=== PATIENT | female | born 1970 | race Asian ===

== ENCOUNTER 2016-10-22 21:51 | Emergency (ER) | payer OTHER ==
[2016-10-22 22:18] LABS: BASOPHILS # (AUTO) 0.1 10^3/uL (0.0-0.1); BASOPHILS % (AUTO) 1.1 %; EOSINOPHILS # (AUTO) 0.3 10^3/uL (0.0-0.7); EOSINOPHILS % (AUTO) 2.3 %; HCT - HEMATOCRIT 34.9 % (37.0-47.0); MEAN CORPUSCULAR HEMOGLOBIN 23.7 pg (27.0-31.0); MEAN CORPUSCULAR HGB CONC 31.5 g/dL (32.0-36.0); MEAN PLATELET VOLUME 7.3 fL (7.9-10.8); MONOCYTES # (AUTO) 1.1 10^3/uL (0.0-1.0); MONOCYTES % (AUTO) 8.4 %; NEUTROPHILS # (AUTO) 8.1 10^3/uL (1.5-6.6); NEUTROPHILS % (AUTO) 64.2 %; RED BLOOD COUNT 4.65 10^6/uL (4.20-5.40); RED CELL DISTRIBUTION WIDTH 17.5 % (12.0-15.0); UNCORRECTED WHITE BLOOD COUNT 12.5 x10^3/uL; WHITE BLOOD COUNT 12.5 x10^3/uL (4.8-10.8)
[2016-10-22 22:28] LABS: ALBUMIN/GLOBULIN RATIO 1.2 (1.0-2.2); BILIRUBIN,TOTAL 0.4 mg/dL (0.2-1.0); CALCIUM 9.5 mg/dL (8.5-10.3); CREATININE 0.6 mg/dL (0.4-1.0); POTASSIUM 3.1 mmol/L (3.5-5.0)
--- NOTE | 2016-10-22 22:44 | XRAY Preliminary Report ---
Exam: XR Chest 1 View IMPRESSION: Normal single view chest. [facility] SITE ID: [id number]
--- NOTE | 2016-10-22 22:46 | XRAY Report ---
EXAM: CHEST RADIOGRAPHY EXAM DATE: 10/22/2016 10:22 PM. CLINICAL HISTORY: Chest pain. COMPARISON: 07/27/2015. TECHNIQUE: 1 view. FINDINGS: Lungs/Pleura: No focal opacities evident. No pleural effusion. No pneumothorax. Mediastinum: Within exam limitations, cardiomediastinal contour is normal. Other: None. IMPRESSION: Normal single view chest. [facility] Referring Provider Line: [phone] SITE ID: [id number]
[2016-10-22 23:28] LABS: INR 0.9 (0.8-1.2); PT - PROTHROMBIN TIME 10.6 secs (9.9-12.6)
[2016-10-23] MEDS ORDERED: POTASSIUM CHLORIDE 20 MEQ/15 ML UDC PO STA (00:42)
--- NOTE | 2016-10-23 00:45 | ED Physician Documentation ---
PD HPI CHEST PAIN - Stated complaint Stated Complaint: CHEST PX - Chief complaint Chief Complaint: Cardiac - History obtained from History obtained from: Patient - History of Present Illness Timing - onset: Today Timing - onset during: Rest Timing - details: Abrupt onset, Still present Quality: Pressure Location: Left chest Improved by: Nothing Worsened by: No: Exertion, Inspiration, Eating, Palpation, Position Associated symptoms: No: Shortness of air, Diaphoresis, Nausea, Vomiting, Feeling faint / dizzy, General Weakness, Palpitations Similar symptoms before: Has not had sx before Recently seen: Not recently seen - Additional information Additional information: Patient is a 46 year old female presenting to the emergency department for chest pain. Patient states that tonight she was sitting on her bed when she developed left sided chest pressure. Patient denied any other associated symptoms and denied any aggrevating or alleviating factors. Review of Systems Constitutional: denies: Fever, Chills Eyes: denies: Loss of vision, Decreased vision Ears: denies: Ear pain Nose: denies: Rhinorrhea / runny nose, Congestion, Epistaxis Throat: denies: Dental pain / toothache, Oral lesions / sores Cardiac: reports: Chest pain / pressure. denies: Palpitations, Calf pain Respiratory: reports: Cough. denies: Dyspnea, Wheezing GI: denies: Abdominal Pain, Nausea, Vomiting Skin: denies: Rash, Lesions Musculoskeletal: denies: Neck pain, Back pain, Extremity pain, Joint pain Neurologic: denies: Generalized weakness, Focal weakness, Numbness Psychiatric: denies: Depressed, Suicidal Immunocompromised: denies: Immunocompromised PD PAST MEDICAL HISTORY - Past Medical History Past Medical History: Yes Cardiovascular: Hypertension Respiratory: None Neuro: None Endocrine/Autoimmune: None GI: None HEENT: None Derm: None - Past Surgical History Past Surgical History: No - Present Medications Home Medications: Ambulatory Orders Medication Instructions Recorded Confirmed Aspirin Chewable [[place] 81 mg PO DAILY 09/28/13 10/22/16 Aspirin] Diltiazem HCl [Diltiazem ER] 360 mg PO DAILY 09/28/13 10/22/16 Lisinopril/Hydrochlorothiazide 1 each PO DAILY 09/28/13 10/22/16 [Lisinopril-Hctz 20-25 mg Tab] Ibuprofen [Motrin] 800 mg PO Q8H PRN #30 tablet 12/01/14 10/22/16 - Allergies Allergies/Adverse Reactions: Allergies Allergy/AdvReac Type Severity Reaction Status Date / Time No Known Drug Allergies Allergy Verified 10/22/16 21:57 - Social History Does the pt smoke?: Yes Smoking Status: Current every day smoker Does the pt drink ETOH?: No Does the pt have substance abuse?: No - Immunizations Immunizations are current?: No Immunizations: TDAP >10years/unknown - POLST Patient has POLST: No PD ED PE NORMAL - Vitals Vital signs reviewed: Yes - General General: Alert and oriented X 3, No acute distress, Well developed/nourished - HEENT HEENT: Atraumatic, PERRL, Pharynx benign - Neck Neck: Supple, no meningeal sign, No JVD - Cardiac Cardiac: No murmur, No rub - Respiratory Respiratory: No respiratory distress, Clear bilaterally - Abdomen Abdomen: Soft, Non tender, Non distended - Derm Derm: Normal color, Warm and dry, No rash - Extremities Extremities: No deformity, No tenderness to palpate, No edema, No calf tenderness / cord - Neuro Neuro: Alert and oriented X 3, 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, No motor deficit, No sensory deficit, Normal speech - Psych Psych: Normal mood, Normal affect PD ED PE EXPANDED - Cardiac Cardiac: Tachy Results - Vitals Vitals: Vital Signs - 24 hr 10/22/16 10/22/16 10/22/16 21:55 22:08 23:20 Temperature 36 C L Heart Rate 114 H 104 H 110 H Respiratory 17 17 99 H Rate Blood Pressure 166/75 H 139/83 H 144/94 H O2 Saturation 98 100 10/23/16 00:07 Temperature Heart Rate 99 Respiratory 17 Rate Blood Pressure 122/82 H O2 Saturation 99 Oxygen O2 Source Room air - EKG (time done) 2158 Rate: Rate (enter#) (104) Rhythm: Sinus tachycardia [place]: Normal Intervals: Normal [place] Compare to prior EKG: Unchanged from prior EKG - Labs Labs: Laboratory Tests 10/22/16 10/22/16 10/22/16 22:00 22:00 22:00 WBC 12.5 H RBC 4.65 Hgb 11.0 L Hct 34.9 L MCV 75.0 L MCH 23.7 L MCHC 31.5 L RDW 17.5 H Plt Count 359 MPV 7.3 L Neut # 8.1 H Lymph # 3.0 Kem[place] # 1.1 H Eos # 0.3 Baso # 0.1 Absolute Nucleated RBC 0.00 Nucleated RBCs 0.0 PT INR APTT D-Dimer Sodium 139 Potassium 3.1 L Chloride 102 Carbon Dioxide 28 Anion Gap 9.0 BUN 11 Creatinine 0.6 Estimated GFR (MDRD) 107 Glucose 117 H Calcium 9.5 Total Bilirubin 0.4 AST 28 ALT 18 Alkaline Phosphatase 56 Troponin I < 0.04 B-Natriuretic Peptide Total Protein 8.0 Albumin 4.3 Globulin 3.7 Albumin/Globulin Ratio 1.2 Lipase 37 10/22/16 10/22/16 10/22/16 22:00 22:00 22:32 WBC RBC Hgb Hct MCV MCH MCHC RDW Plt Count MPV Neut # Lymph # [place] # Eos # Baso # Absolute Nucleated RBC Nucleated RBCs PT 10.6 INR 0.9 APTT 30.0 D-Dimer < 200.0 L Sodium Potassium Chloride Carbon Dioxide Anion Gap BUN Creatinine Estimated GFR (MDRD) Glucose Calcium Total Bilirubin AST ALT Alkaline Phosphatase Troponin I B-Natriuretic Peptide 15 Total Protein Albumin Globulin Albumin/Globulin Ratio Lipase 10/23/16 00:18 WBC RBC Hgb Hct MCV MCH MCHC RDW Plt Count MPV Neut # Lymph # Kem[place] # Eos # Baso # Absolute Nucleated RBC Nucleated RBCs PT INR APTT D-Dimer Sodium Potassium Chloride Carbon Dioxide Anion Gap BUN Creatinine Estimated GFR (MDRD) Glucose Calcium Total Bilirubin AST ALT Alkaline Phosphatase Troponin I < 0.04 B-Natriuretic Peptide Total Protein Albumin Globulin Albumin/Globulin Ratio Lipase - Rads (name of study) chest x-ray Radiology: Final report received (no acute abnormality) PD MEDICAL DECISION MAKING - ED course Complexity details: reviewed old records, reviewed results, re-evaluated patient , considered differential, d/w patient ED course: Patient was seen and examined at bedside. Patient was tachycardic but otherwise vital signs were within normal limits. Patient was comfortable and in no acute distress. ekg was performed, iv access was gained and labs were drawn. Patient's ekg showed no change when compared to last year. chest x-ray was within normal limits. labs including dimer and troponin were negative. Patient was observed for 3 hours and another troponin was ordered and remained negative. Patient's HEART score was low risk. Patient required no further work up and patient was stable for discharge with close outpatient follow up. Departure - Departure Disposition: 01 Home, Self Care Clinical Impression: Atypical chest pain Condition: Good Instructions: ED Chest Pain Atypical Unkn Cause Follow-Up: primary,care provider [Other] - Within 3 Days Comments: Your diagnostics today were within normal limits. There was no abnormalities. Although this means that your pain being cardiac in nature is unlikely, it is only a snapshot in time. It is important that you follow up with your pmd for re-evaluation and a possible stress test and echocardiogram. You should increase the amount of potassium you eat since you are on the diuretic. You may return to the emergency department at any time for chest pain, shortness of breath, new worsening or uncontrollable symptoms.
[2016-10-23 00:53] VITALS: BP 139/87
[2016-10-23] MEDS ORDERED: POTASSIUM CHLORIDE 20 MEQ TABLET PO ONE (00:53)
[2016-10-23] MEDS ORDERED: POTASSIUM CHLORIDE 20 MEQ TABLET PO STA (01:17)
== END 2016-10-23 01:05 | disposition home or self-care (01) ==
LOC: ED 21:51
DX: R07.89 Other chest pain (principal); R00.0 Tachycardia, unspecified; I10 Essential (primary) hypertension; F17.200 Nicotine dependence, unspecified, uncomplicated; Z79.82 Long term (current) use of aspirin
CPT/HCPCS: 36415; 71010; 80053; 83690; 83880; 84484; 85025; 85379; 85610; 85730; 93005; 93010; 99284; A9270

== ENCOUNTER 2016-12-19 11:54 | Emergency (ER) | payer OTHER | END 2016-12-19 12:01 | disposition left against medical advice (07) | LOC: ED 11:54 | DX: Z53.21 Procedure and treatment not carried out due to patient leaving prior to being seen by health care provider (principal) ==

== ENCOUNTER 2017-03-09 19:26 | Emergency (ER) | payer OTHER ==
[2017-03-09 20:17] LABS: BASOPHILS # (AUTO) 0.1 10^3/uL (0.0-0.1); BASOPHILS % (AUTO) 0.9 %; EOSINOPHILS # (AUTO) 0.2 10^3/uL (0.0-0.7); EOSINOPHILS % (AUTO) 2.3 %; HCT - HEMATOCRIT 31.5 % (37.0-47.0); HGB - HEMOGLOBIN 9.7 g/dL (12.0-16.0); LYMPHOCYTES # (AUTO) 3.1 10^3/uL (1.5-3.5); LYMPHOCYTES % (AUTO) 29.9 %; MEAN CORPUSCULAR HEMOGLOBIN 20.9 pg (27.0-31.0); MEAN CORPUSCULAR HGB CONC 30.6 g/dL (32.0-36.0); MEAN CORPUSCULAR VOLUME 68.3 fL (81.0-99.0); MEAN PLATELET VOLUME 6.3 fL (7.9-10.8); MONOCYTES # (AUTO) 0.8 10^3/uL (0.0-1.0); MONOCYTES % (AUTO) 8.1 %; NEUTROPHILS % (AUTO) 58.8 %; RED BLOOD COUNT 4.62 10^6/uL (4.20-5.40); RED CELL DISTRIBUTION WIDTH 16.5 % (12.0-15.0); UNCORRECTED WHITE BLOOD COUNT 10.2 x10^3/uL; WHITE BLOOD COUNT 10.2 x10^3/uL (4.8-10.8)
[2017-03-09 20:21] LABS: PT - PROTHROMBIN TIME 10.9 secs (9.9-12.6)
[2017-03-09] MEDS ORDERED: KETOROLAC 60 MG/2 ML VIAL IVP STA (20:23)
[2017-03-09 20:27] LABS: ALBUMIN/GLOBULIN RATIO 1.2 (1.0-2.2); BILIRUBIN,TOTAL 0.8 mg/dL (0.2-1.0); CALCIUM 9.3 mg/dL (8.5-10.3); CREATININE 0.6 mg/dL (0.4-1.0)
[2017-03-09 20:28] LABS: PARTIAL THROMBOPLASTIN TIME 30.1 secs (24.9-33.3)
[2017-03-09] MEDS ORDERED: SODIUM CHLORIDE FLUSH 0.9% 10 ML SYRINGE IVP ONE (20:45)
[2017-03-09] MEDS ORDERED: KETOROLAC 30 MG/ML VIAL ONE (20:45)
--- NOTE | 2017-03-09 21:00 | XRAY Preliminary Report ---
Exam: XR Chest 1 View IMPRESSION: Normal single view chest. [facility] SITE ID: [id number]
--- NOTE | 2017-03-09 21:03 | XRAY Report ---
EXAM: CHEST RADIOGRAPHY EXAM DATE: 03/09/2017 08:38 PM. CLINICAL HISTORY: Chest pain. COMPARISON: 10/22/2016. TECHNIQUE: 1 view. FINDINGS: Lungs/Pleura: No focal opacities evident. No pleural effusion. No pneumothorax. Mediastinum: Within exam limitations, cardiomediastinal contour is normal. Other: No bony abnormality identified. IMPRESSION: Normal single view chest. [facility] Referring Provider Line: [phone] SITE ID: [id number]
[2017-03-09] MEDS ORDERED: POTASSIUM BICARB 25 MEQ TABLET PO STA (21:18)
--- NOTE | 2017-03-09 21:18 | ED Physician Documentation ---
PD HPI CHEST PAIN - Stated complaint Stated Complaint: CHEST PAIN - Chief complaint Chief Complaint: Cardiac - History obtained from History obtained from: Patient - History of Present Illness Timing - onset: Yesterday Timing - onset during: Rest Timing - duration: Days (2) Timing - details: Gradual onset, Waxing and waning Pain level max: 7 Pain level now: 7 Quality: Pressure, Sharp Location: Left chest Radiation: Other (L shoulder) Improved by: Nothing Worsened by: Movement, Palpation. No: Exertion, Inspiration, Eating Associated symptoms: Nausea (mild). No: Shortness of air, Diaphoresis, Vomiting , Feeling faint / dizzy, General Weakness, Palpitations, Cough Similar symptoms before: Diagnosis (states has been told this is muscular in the past) Recently seen: Not recently seen - Additional information Additional information: no recent travel, immobilization, surgery. No smoking. Not on OCP. Review of Systems Ten Systems: 10 systems reviewed and negative Constitutional: denies: Fever, Chills Nose: denies: Rhinorrhea / runny nose, Congestion Throat: denies: Sore throat Cardiac: denies: Palpitations Respiratory: denies: Dyspnea, Cough GI: denies: Nausea, Vomiting, Diarrhea Skin: denies: Rash Musculoskeletal: denies: Neck pain, Back pain Neurologic: denies: Focal weakness, Numbness, Headache PD PAST MEDICAL HISTORY - Past Medical History Cardiovascular: Hypertension Respiratory: None Neuro: None Endocrine/Autoimmune: None GI: None HEENT: None Derm: None - Past Surgical History Past Surgical History: No - Present Medications Home Medications: Ambulatory Orders Medication Instructions Recorded Confirmed Aspirin Chewable [[place] 81 mg PO DAILY 09/28/13 03/09/17 Aspirin] Diltiazem HCl [Diltiazem ER] 360 mg PO DAILY 09/28/13 03/09/17 Lisinopril/Hydrochlorothiazide 1 each PO DAILY 09/28/13 03/09/17 [Lisinopril-Hctz 20-25 mg Tab] Ibuprofen [Motrin] 800 mg PO Q8H PRN #30 tablet 12/01/14 03/09/17 Ibuprofen [Motrin] 800 mg PO Q8H PRN #30 tablet 03/09/17 - Allergies Allergies/Adverse Reactions: Allergies Allergy/AdvReac Type Severity Reaction Status Date / Time No Known Drug Allergies Allergy Verified 10/22/16 21:57 - Social History Does the pt smoke?: Yes Smoking Status: Current every day smoker Does the pt drink ETOH?: No Does the pt have substance abuse?: No - Immunizations Immunizations are current?: No Immunizations: TDAP >10years/unknown - POLST Patient has POLST: No PD ED PE NORMAL - Vitals Vital signs reviewed: Yes - General General: Alert and oriented X 3, No acute distress, Well developed/nourished - HEENT HEENT: PERRL, Moist mucous membranes - Neck Neck: Supple, no meningeal sign, No bony TTP - Cardiac Cardiac: RRR, No murmur, Strong equal pulses, Other (TTP over the L upper chest wall. reproduces pain.) - Respiratory Respiratory: No respiratory distress, Clear bilaterally - Abdomen Abdomen: Soft, Non tender, Non distended - Derm Derm: Warm and dry - Extremities Extremities: No edema, No calf tenderness / cord - Neuro Neuro: Alert and oriented X 3 - Psych Psych: Normal mood, Normal affect Results - Vitals Vitals: Oxygen O2 Source Room air - EKG (time done) 2005 Rate: Rate (enter#) (104) Rhythm: Sinus tachycardia [place]: Normal Intervals: Normal [place] QRS: Normal Ischemia: Normal ST segments - Labs Labs: Laboratory Tests 03/09/17 03/09/17 03/09/17 20:00 20:08 20:08 WBC 10.2 RBC 4.62 Hgb 9.7 L Hct 31.5 L MCV 68.3 L MCH 20.9 L MCHC 30.6 L RDW 16.5 H Plt Count 427 MPV 6.3 L Neut # 6.0 Lymph # 3.1 [place] # 0.8 Eos # 0.2 Baso # 0.1 Absolute Nucleated RBC 0.00 Nucleated RBCs 0.0 PT 10.9 INR 1.0 APTT 30.1 D-Dimer Sodium Potassium Chloride Carbon Dioxide Anion Gap BUN Creatinine Estimated GFR (MDRD) Glucose Calcium Total Bilirubin AST ALT Alkaline Phosphatase Troponin I Total Protein Albumin Globulin Albumin/Globulin Ratio Urine Color YELLOW Urine Clarity CLEAR Urine pH 6.0 Ur Specific [place] 1.010 Urine Protein NEGATIVE Urine Glucose (UA) NEGATIVE Urine Ketones NEGATIVE Urine Occult Blood NEGATIVE Urine Nitrite NEGATIVE Urine Bilirubin NEGATIVE Urine Urobilinogen 0.2 (NORMAL) Ur Leukocyte Esterase NEGATIVE Urine RBC Cancelled Urine WBC Cancelled Urine WBC Clumps Cancelled Ur Epithelial Cells Cancelled Ur Squamous Epith Cells Cancelled Urine Crystals Cancelled Amorphous Sediment Cancelled Urine Bacteria Cancelled Urine Casts Cancelled Urine Starch Cancelled Urine Mucus Cancelled Urine Trichomonas Cancelled Urine Yeast Cancelled Urine Sperm Cancelled Ur Oval Fat Bodies Cancelled Ur Microscopic Review NOT INDICATED Urine Culture Comments NOT INDICATED 03/09/17 03/09/17 03/09/17 20:08 20:08 21:19 WBC RBC Hgb Hct MCV MCH MCHC RDW Plt Count MPV Neut # Lymph # [place] # Eos # Baso # Absolute Nucleated RBC Nucleated RBCs PT INR APTT D-Dimer < 200.0 L Sodium 135 Potassium 3.0 L Chloride 100 L Carbon Dioxide 25 Anion Gap 10.0 BUN 16 Creatinine 0.6 Estimated GFR (MDRD) 107 Glucose 102 H Calcium 9.3 Total Bilirubin 0.8 AST 21 ALT 20 Alkaline Phosphatase 72 Troponin I < 0.04 Total Protein 8.0 Albumin 4.4 Globulin 3.6 Albumin/Globulin Ratio 1.2 Urine Color Urine Clarity Urine pH Ur Specific [place] Urine Protein Urine Glucose (UA) Urine Ketones Urine Occult Blood Urine Nitrite Urine Bilirubin Urine Urobilinogen Ur Leukocyte Esterase Urine RBC Urine WBC Urine WBC Clumps Ur Epithelial Cells Ur Squamous Epith Cells Urine Crystals Amorphous Sediment Urine Bacteria Urine Casts Urine Starch Urine Mucus Urine Trichomonas Urine Yeast Urine Sperm Ur Oval Fat Bodies Ur Microscopic Review Urine Culture Comments - Rads (name of study) cxr Radiology: Prelim report reviewed, EMP read contemporaneously, See rad report ( normal) PD MEDICAL DECISION MAKING - ED course Complexity details: reviewed results, re-evaluated patient, considered differential (No ST elevation [place], no aortic dissection, no PE, no tension pneumothorax, no aortic aneurysm), d/w patient, d/w family ED course: Patient is a 47-year-old female who presents to the emergency department with left upper chest wall pain, seems consistent with musculoskeletal pain on exam. Improved with Toradol. She was found to have hypokalemia and this was replaced with potassium. No evidence of PE, acute coronary syndrome. We will continue supportive care and follow-up with her doctor. Patient counseled regarding signs and symptoms for which I believe and urgent re-evaluation would be necessary. Patient with good understanding of and agreement to plan and is comfortable going home at this time This document was made in part using voice recognition software. While efforts are made to proofread this document, sound alike and grammatical errors may occur. Departure - Departure Disposition: 01 Home, Self Care Clinical Impression: Chest wall pain, Hypokalemia Anemia Qualifiers: Anemia type: unspecified type Qualified Code(s): D64.9 - Anemia, unspecified Condition: Good Instructions: ED Strain Chest Wall Follow-Up: your,doctor in 1 week [Other] Prescriptions: Ibuprofen [Motrin] 800 mg PO Q8H PRN #30 tablet PRN Reason: PAIN &/OR FEVER Comments: Your tests are normal today. Return if you worsen. You can use the Motrin as needed for pain. Your red blood cell count is mildly decreased from prior, you should follow-up with your doctor for further evaluation. Your blood pressure was elevated today on check in to the emergency department. This does not mean that you have hypertension, it is a common phenomenon to check into the emergency department and have elevated blood pressure. I recommend that you see your primary care physician within the week to have it rechecked when you're feeling better. Discharge Date/Time: 03/09/17 22:55
[2017-03-09] MEDS ORDERED: POTASSIUM BICARB 25 MEQ TABLET PO ONE (21:25)
[2017-03-09 22:00] LABS: BILIRUBIN,URINE NEGATIVE (NEGATIVE); UA CHARGE (STRIP ONLY) YES; UR CULTURE IF IND NOT INDICATED
[2017-03-09 22:39] VITALS: BP 148/93
== END 2017-03-09 22:55 | disposition home or self-care (01) ==
LOC: ED 19:26
DX: R07.89 Other chest pain (principal); E87.6 Hypokalemia; D64.9 Anemia, unspecified; R00.0 Tachycardia, unspecified; I10 Essential (primary) hypertension; F17.200 Nicotine dependence, unspecified, uncomplicated; Z79.82 Long term (current) use of aspirin
CPT/HCPCS: 36415; 71010; 80053; 81003; 84484; 85025; 85379; 85610; 85730; 93005; 96374; 99284; A9270; 81001; 87086

== ENCOUNTER 2017-08-15 10:05 | Emergency (ER) | payer OTHER ==
[2017-08-15] MEDS ORDERED: ACETAMINOPHEN 325 MG TABLET PO STA (12:31)
[2017-08-15] MEDS ORDERED: DEXAMETHASONE 10 MG/ML VIAL PO STA (12:39)
--- NOTE | 2017-08-15 12:40 | ED Physician Documentation ---
PD HPI URI - Stated complaint Stated Complaint: FLU LIKE SX - Chief complaint Chief Complaint: Fever - History obtained from History obtained from: Patient - History of Present Illness Timing - onset: Last night Timing duration: Hours Timing details: Abrupt onset, Still present Associated symptoms: Fever, Chills, Sweats, Nasal congestion, Rhinorrhea, Sore throat, Dry cough Contributing factors: Sick contact (flu season) Improves by: Rest, Medication Worsened by: Activity Similar symptoms before: Has not had sx before Recently seen: Not recently seen - Additional information Additional information: 39-year-old female with acute onset of fever chills sweats cough and sore throat in the middle of flu season. Review of Systems Constitutional: reports: Fever, Chills, Myalgias, Fatigue, Sweats Eyes: denies: Decreased vision Ears: denies: Ear pain Nose: reports: Rhinorrhea / runny nose, Congestion Throat: reports: Sore throat Cardiac: denies: Chest pain / pressure, Palpitations Respiratory: reports: Cough. denies: Dyspnea GI: denies: Nausea, Vomiting : denies: Dysuria Skin: denies: Rash Musculoskeletal: denies: Neck pain, Back pain, Extremity pain Neurologic: denies: Generalized weakness, Focal weakness, Numbness PD PAST MEDICAL HISTORY - Past Medical History Cardiovascular: Hypertension Respiratory: None Neuro: None Endocrine/Autoimmune: None GI: None HEENT: None Derm: None - Past Surgical History Past Surgical History: No - Present Medications Home Medications: Ambulatory Orders Medication Instructions Recorded Confirmed Aspirin Chewable [[place] 81 mg PO DAILY 09/28/13 03/09/17 Aspirin] Lisinopril/Hydrochlorothiazide 1 each PO DAILY 09/28/13 03/09/17 [Lisinopril-Hctz 20-25 mg Tab] Ibuprofen [Motrin] 800 mg PO Q8H PRN #30 tablet 12/01/14 03/09/17 Ibuprofen [Motrin] 800 mg PO Q8H PRN #30 tablet 03/09/17 Oseltamivir [Tamiflu] 75 mg PO BID #10 capsule 08/15/17 - Allergies Allergies/Adverse Reactions: Allergies Allergy/AdvReac Type Severity Reaction Status Date / Time No Known Drug Allergies Allergy Verified 10/22/16 21:57 - Social History Does the pt smoke?: Yes Smoking Status: Current every day smoker Does the pt drink ETOH?: No Does the pt have substance abuse?: No - Immunizations Immunizations are current?: No Immunizations: TDAP >10years/unknown - POLST Patient has POLST: No PD ED PE NORMAL - Vitals Vital signs reviewed: Yes (febrile tachy and hypertensive) - General General: Alert and oriented X 3, No acute distress, Well developed/nourished - HEENT HEENT: Atraumatic, PERRL, EOMI, Ears normal, Other (dry mucous membranes) - Neck Neck: Supple, no meningeal sign, No bony TTP - Cardiac Cardiac: No murmur, Other (tachy to 110) - Respiratory Respiratory: No respiratory distress, Clear bilaterally - Abdomen Abdomen: Soft, Non tender - Back Back: No CVA TTP, No spinal TTP - Derm Derm: Normal color, Warm and dry, No rash - Extremities Extremities: No deformity, No edema - Neuro Neuro: No motor deficit, No sensory deficit Eye Opening: Spontaneous Motor: Obeys Commands Verbal: Oriented GCS Score: 15 - Psych Psych: Normal mood, Normal affect Results - Vitals Vitals: Vital Signs - 24 hr 08/15/17 10:30 Temperature 38.3 C H Heart Rate 118 H Respiratory 20 Rate Blood Pressure 173/100 H O2 Saturation 98 Oxygen O2 Source Room air - Labs Labs: Laboratory Tests 08/15/17 10:50 Influenza A (Rapid) Negative Influenza B (Rapid) POSITIVE H Influenza Types A,B Ag + H PD MEDICAL DECISION MAKING - ED course Complexity details: reviewed old records, reviewed results, considered differential, d/w patient ED course: 47-year-old female with acute influenza B has no other evidence of coinfection. She is administered DEXA methadone [address] her on some Tamiflu as this is within 1 day of her illness onset. Departure - Departure Disposition: 01 Home, Self Care Clinical Impression: Influenza B Instructions: ED Flu, Medication: Tamiflu (Oseltamivir) Follow-Up: LATANYA Figueroa [Provider Group] Prescriptions: Oseltamivir [Tamiflu] 75 mg PO BID #10 capsule Forms: Activity restrictions
[2017-08-15 12:53] VITALS: BP 170/85
== END 2017-08-15 12:54 | disposition home or self-care (01) ==
LOC: ED 10:05
DX: J10.1 Influenza due to other identified influenza virus with other respiratory manifestations (principal); I10 Essential (primary) hypertension; F17.200 Nicotine dependence, unspecified, uncomplicated
CPT/HCPCS: 87275; 87276; 99283; A9270

== ENCOUNTER 2018-12-15 16:41 | Emergency (ER) | payer OTHER ==
[2018-12-15] MEDS ORDERED: CYCLOBENZAPRINE 10 MG TABLET PO STA (16:54)
--- NOTE | 2018-12-15 16:57 | ED Physician Documentation ---
PD HPI CHEST PAIN - Stated complaint Stated Complaint: CP - Chief complaint Chief Complaint: Cardiac - History obtained from History obtained from: Patient - History of Present Illness Timing - onset: Other (She has had 2 days of constant left upper chest pain radiating into the left posterior neck. Its worse with motion. She denies shortness of breath. She is very mildly dizzy and nauseous with it. She denies pedal edema or calf pain. She has no personal history of coronary disease. She is a smoker and has underlying blood pressure issues.) Review of Systems Ten Systems: 10 systems reviewed and negative Constitutional: denies: Fever, Chills, Fatigue Cardiac: denies: Palpitations, Pedal edema Respiratory: denies: Dyspnea, Cough, Hemoptysis, Wheezing PD PAST MEDICAL HISTORY - Past Medical History Cardiovascular: Hypertension Respiratory: None Endocrine/Autoimmune: None GI: None HEENT: None Derm: None - Past Surgical History Past Surgical History: No - Present Medications Home Medications: Ambulatory Orders Medication Instructions Recorded Confirmed Aspirin Chewable [[place] 81 mg PO DAILY 09/28/13 03/09/17 Aspirin] Lisinopril/Hydrochlorothiazide 1 each PO DAILY 09/28/13 03/09/17 [Lisinopril-Hctz 20-25 mg Tab] Ibuprofen [Motrin] 800 mg PO Q8H PRN #30 tablet 12/01/14 03/09/17 Ibuprofen [Motrin] 800 mg PO Q8H PRN #30 tablet 03/09/17 Oseltamivir [Tamiflu] 75 mg PO BID #10 capsule 08/15/17 - Allergies Allergies/Adverse Reactions: Allergies Allergy/AdvReac Type Severity Reaction Status Date / Time No Known Drug Allergies Allergy Verified 10/22/16 21:57 - Social History Does the pt smoke?: Yes Smoking Status: Current every day smoker Does the pt drink ETOH?: No Does the pt have substance abuse?: No - Immunizations Immunizations are current?: No Immunizations: TDAP >10years/unknown - POLST Patient has POLST: No PD ED PE NORMAL - Vitals Vital signs reviewed: Yes (Tachycardic) - General General: Alert and oriented X 3, No acute distress - HEENT HEENT: PERRL, EOMI - Neck Neck: Supple, no meningeal sign, No bony TTP, Other (Some tenderness of the left upper chest wall and left sternocleidomastoid which reproduces her pain.) - Cardiac Cardiac: RRR, No murmur - Respiratory Respiratory: No respiratory distress, Clear bilaterally - Abdomen Abdomen: Non tender - Derm Derm: Normal color, Warm and dry - Extremities Extremities: No edema, No calf tenderness / cord - Neuro Neuro: Alert and oriented X 3, Normal speech Results - Vitals Vitals: Vital Signs - 24 hr 12/15/18 16:47 Temperature 36.6 C Heart Rate 113 H Respiratory 16 Rate Blood Pressure 140/81 H O2 Saturation 95 Oxygen O2 Source Room air - EKG (time done) 1648 Rate: Rate (enter#) (112) Rhythm: Sinus tachycardia (With frequent PACs) [place]: Normal Intervals: Normal [place] QRS: LVH Ischemia: Non specific changes (Flat inferior and the lateral T waves, morphology consistent with the last EKG in the chart which was dated March 09, 2017.) Computer interpretation: Agree with computer - Labs Labs: Laboratory Tests 12/15/18 12/15/18 12/15/18 17:03 17:03 17:03 WBC 9.6 RBC 4.86 Hgb 10.2 L Hct 34.8 L MCV 71.6 L MCH 21.0 L MCHC 29.3 L RDW 18.2 H Plt Count 371 MPV 8.4 Neut # (Auto) 6.0 Lymph # (Auto) 2.6 [place] # (Auto) 0.7 Eos # (Auto) 0.2 Baso # (Auto) 0.1 Absolute Nucleated RBC 0.00 Nucleated RBC % 0.0 D-Dimer 210.5 Sodium 134 L Potassium 2.6 L Chloride 99 L Carbon Dioxide 23 Anion Gap 12.0 BUN 13 Creatinine 0.7 Estimated GFR (MDRD) 89 Glucose 175 H Calcium 9.2 Total Bilirubin 0.7 AST 19 ALT 15 Alkaline Phosphatase 67 Troponin I Total Protein 7.7 Albumin 4.0 Globulin 3.7 Albumin/Globulin Ratio 1.1 Lipase 34 12/15/18 17:03 WBC RBC Hgb Hct MCV MCH MCHC RDW Plt Count MPV Neut # (Auto) Lymph # (Auto) [place] # (Auto) Eos # (Auto) Baso # (Auto) Absolute Nucleated RBC Nucleated RBC % D-Dimer Sodium Potassium Chloride Carbon Dioxide Anion Gap BUN Creatinine Estimated GFR (MDRD) Glucose Calcium Total Bilirubin AST ALT Alkaline Phosphatase Troponin I < 0.04 Total Protein Albumin Globulin Albumin/Globulin Ratio Lipase - Rads (name of study) 2v cxr Radiology: EMP read contemporaneously (normal) PD MEDICAL DECISION MAKING - ED course ED course: This is a 48-year-old woman with Ongoing consistent 2 days of atypical left-sided chest pain into the neck which given the location is most consistent with a musculoskeletal etiology. Single troponin should be predictive given the time course. D-dimer and chest x-ray also negative. Departure - Departure Disposition: Home, Self Care Clinical Impression: Chest pain Qualifiers: Chest pain type: unspecified Qualified Code(s): R07.9 - Chest pain, unspecified Condition: Good Record reviewed to determine appropriate education?: Yes Health Concerns: Chest pain Plan of Treatment: Chest x-ray, troponin, d-dimer all negative in the department here. The examination is most consistent with a muscular etiology. Recommend ibuprofen as needed for pain. Follow-up with your physician to consider stress testing. Return if worse. Care Goals: Rule out cardiac or other serious cause Assessment: as above Instructions: ED Chest Pain NonCardiac
[2018-12-15 17:10] LABS: BASOPHILS # (AUTO) 0.1 10^3/uL (0.0-0.1); BASOPHILS % (AUTO) 0.5 %; EOSINOPHILS # (AUTO) 0.2 10^3/uL (0.0-0.7); EOSINOPHILS % (AUTO) 1.8 %; HGB - HEMOGLOBIN 10.2 g/dL (12.0-16.0); LYMPHOCYTES # (AUTO) 2.6 10^3/uL (1.5-3.5); LYMPHOCYTES % (AUTO) 26.8 %; MEAN CORPUSCULAR HGB CONC 29.3 g/dL (32.0-36.0); MEAN CORPUSCULAR VOLUME 71.6 fL (81.0-99.0); MEAN PLATELET VOLUME 8.4 fL (7.9-10.8); MONOCYTES # (AUTO) 0.7 10^3/uL (0.0-1.0); MONOCYTES % (AUTO) 7.6 %; PLT - PLATELET COUNT 371 10^3/uL (130-450); RED BLOOD COUNT 4.86 10^6/uL (4.20-5.40); RED CELL DISTRIBUTION WIDTH 18.2 % (12.0-15.0); WHITE BLOOD COUNT 9.6 x10^3/uL (4.8-10.8)
[2018-12-15 17:22] LABS: ALBUMIN/GLOBULIN RATIO 1.1 (1.0-2.2); BILIRUBIN,TOTAL 0.7 mg/dL (0.2-1.0); CALCIUM 9.2 mg/dL (8.5-10.3); CREATININE 0.7 mg/dL (0.4-1.0); TOTAL PROTEIN 7.7 g/dL (6.7-8.2)
[2018-12-15] MEDS ORDERED: POTASSIUM CHLORIDE 20 MEQ TABLET PO STA (17:32)
--- NOTE | 2018-12-15 17:41 | XRAY Report ---
Reason: chest pain Procedure Date: 12/15/2018 Accession Number: [id number] / [id number] Procedure: XR - Chest 2 View X-Ray CPT Code: 87268 FULL RESULT: EXAM: CHEST RADIOGRAPHY EXAM DATE: 12/15/2018 05:27 PM. CLINICAL HISTORY: Chest pain. COMPARISON: CHEST 1 VIEW 03/09/2017 8:43 PM. TECHNIQUE: 2 views. FINDINGS: Lungs/Pleura: No focal consolidation. No pleural effusion. No pneumothorax. Normal volumes. Mediastinum: Heart and mediastinal contours are normal. Other: None. IMPRESSION: No acute cardiopulmonary abnormality. RADIA
[2018-12-15 18:17] VITALS: BP 126/61
== END 2018-12-15 18:21 | disposition home or self-care (01) ==
LOC: ED 16:41
DX: R07.9 Chest pain, unspecified (principal); M54.2 Cervicalgia; R42 Dizziness and giddiness; R11.0 Nausea; R00.0 Tachycardia, unspecified; I49.1 Atrial premature depolarization; I10 Essential (primary) hypertension; F17.200 Nicotine dependence, unspecified, uncomplicated
CPT/HCPCS: 71046; 80053; 83690; 84484; 85025; 85379; 93005; 99283; 99284; A9270

== ENCOUNTER 2020-01-11 10:05 | Outpatient (CLI) | payer OTHER ==
[2020-01-11] MEDS ORDERED: GADOBUTROL 7.5 MMOL/7.5 ML VIAL ONE (11:06)
[2020-01-11] MEDS ORDERED: GADOBUTROL 7.5 MMOL/7.5 ML VIAL IVP ONE (11:10)
--- NOTE | 2020-01-11 11:49 | MRI Report ---
PROCEDURE: Knee LT W/WO INDICATIONS: LT KNEE PAIN, R/O OSTEONEOCROSIS CONTRAST: IV CONTRAST: Gadavist ml: 7.5 TECHNIQUE: Noncontrast sagittal PD fast spin echo and T2 fast spin echo with fat saturation, sagittal 3-D spoile d GE with fat saturation; coronal T1 spin echo and PD fast spin echo with fat saturation, and axial T 1 spin echo and PD fast spin echo with fat saturation through the knee. Post-contrast axial, coronal , and sagittal T1 spin echo with fat saturation through the knee. COMPARISON: None. FINDINGS: Image quality: Excellent. Menisci: The medial meniscus is intact. There is a horizontal oblique tearing of the anterior horn o f the lateral meniscus extending to the middle third of the tibial articular surface and involving th e anterior meniscal root attachment. There is mild extrusion of the meniscal body beyond femorotibial joint line. Cruciate ligaments: The anterior and posterior cruciate ligaments appear intact. Medial structures: The medial collateral ligament appears intact. Visualized portions of the pes an serinus tendons appear normal. No abnormal bursal fluid. Lateral structures: The lateral collateral ligament, long and short heads of the biceps femoris tend on appear intact. The popliteus tendon appears intact. Iliotibial band appears normal. Anterior structures: There is mild proximal patellar tendinosis. The distal quadriceps tendon is inta ct. Patellar alignment is normal. No femoral trochlear dysplasia or ventral trochlear prominence. N o edema in the infrapatellar fat pad. Bones and cartilage: No suspicious osseous enhancement. No bone marrow contusions or acute fracture s. The cartilage of the medial and lateral femorotibial compartments appears normal in thickness. S hallow cartilage fissuring is seen in the lateral femoral trochlea. Joint space: A moderate knee joint effusion is present. There is a trace medial popliteal cyst. No barbosa spicious soft tissue enhancement. IMPRESSION: 1. No acute trabecular bone injury. No signs of osteonecrosis. 2. Horizontal oblique tearing of the anterior horn of the lateral meniscus extending to the middle t hird of the tibial articular surface and involving the anterior root attachment. There is no meniscal extrusion. 3. Shallow cartilage fissuring involving the lateral femoral trochlea. 4. Mild proximal patellar tendinosis. 5. Moderate joint effusion. Reviewed by: Topher Alexander MD on 01/11/2020 11:48 AM PDT Approved by: Topher Alexander MD on 01/11/2020 11:48 AM PDT Station ID: [id number]
== END 2020-01-11 10:06 | disposition home or self-care (01) ==
LOC: DI 10:05
PROVIDERS: ATTEND Nurse Practitioner Family
DX: S83.282A Other tear of lateral meniscus, current injury, left knee, initial encounter (principal); M67.864 Other specified disorders of tendon, left knee; M25.462 Effusion, left knee
CPT/HCPCS: 73723; A9585

== ENCOUNTER 2020-04-16 15:49 | Emergency (ER) | payer OTHER ==
[2020-04-16 16:00] VITALS: BP 141/80
[2020-04-16] MEDS ORDERED: oxyCODONE 5 MG TABLET PO STA (16:07)
[2020-04-16] MEDS ORDERED: ACETAMINOPHEN 325 MG TABLET PO STA (16:07)
--- NOTE | 2020-04-16 16:10 | ED Physician Documentation ---
PD HPI LOWER EXT INJURY - Stated complaint Stated Complaint: RT KNEE PX - Chief complaint Chief Complaint: Ext Problem - History obtained from History obtained from: Patient - Additional information Additional information: She was at work about 3pm, stretching her ganga. Milnor a pop lateral and interior R knee with severe pain. No hx knee issues. Review of Systems Constitutional: reports: Reviewed and negative Eyes: reports: Reviewed and negative Throat: reports: Reviewed and negative PD PAST MEDICAL HISTORY - Past Medical History Cardiovascular: Hypertension Respiratory: None Endocrine/Autoimmune: None GI: None HEENT: None Derm: None - Past Surgical History Past Surgical History: No - Present Medications Home Medications: Ambulatory Orders Medication Instructions Recorded Confirmed Aspirin Chewable [[place] 81 mg PO DAILY 09/28/13 03/09/17 Aspirin] Lisinopril/Hydrochlorothiazide 1 each PO DAILY 09/28/13 03/09/17 [Lisinopril-Hctz 20-25 mg Tab] Ibuprofen [Motrin] 800 mg PO Q8H PRN #30 tablet 12/01/14 03/09/17 Ibuprofen [Motrin] 800 mg PO Q8H PRN #30 tablet 03/09/17 Oseltamivir [Tamiflu] 75 mg PO BID #10 capsule 08/15/17 Oxycodone HCl/Acetaminophen 1 - 2 each PO Q6H PRN #14 tablet 04/16/20 [Percocet 5-325 mg Tablet] - Allergies Allergies/Adverse Reactions: Allergies Allergy/AdvReac Type Severity Reaction Status Date / Time No Known Drug Allergies Allergy Verified 04/16/20 16:00 - Social History Does the pt smoke?: Yes Smoking Status: Current every day smoker Does the pt drink ETOH?: No Does the pt have substance abuse?: No - Immunizations Immunizations are current?: No Immunizations: TDAP >10years/unknown - POLST Patient has POLST: No PD ED PE NORMAL - Vitals Vital signs reviewed: Yes - General General: Alert and oriented X 3, No acute distress - Extremities Extremities: Other (R knee: no effusion, Mild TTP lateral. ++pain with ACL and LCL testing but no obvious laxity.) Results - Vitals Vitals: Vital Signs - 24 hr 04/16/20 15:53 Temperature 37.1 C Heart Rate 110 H Respiratory 17 Rate Blood Pressure 141/80 H O2 Saturation 99 Oxygen O2 Source Room air - Rads (name of study) R knee xr Radiology: EMP read contemporaneously (normal) Departure - Departure Disposition: 01 Home, Self Care Clinical Impression: Strain of right knee Qualifiers: Encounter type: initial encounter Qualified Code(s): S86.911A - Strain of unspecified muscle(s) and tendon(s) at lower leg level, right leg, initial encounter Condition: Stable Instructions: ED Sprain Knee Follow-Up: [facility] [Provider Group] Prescriptions: Oxycodone HCl/Acetaminophen [Percocet 5-325 mg Tablet] 1 - 2 each PO Q6H PRN #14 tablet PRN Reason: pain Comments: Followup with orthopedics office, call tomorrow for appt. Forms: Activity restrictions
--- NOTE | 2020-04-16 16:58 | XRAY Report ---
PROCEDURE: Knee 4 View RT INDICATIONS: Knee injury TECHNIQUE: 3 views of the right knee were acquired. COMPARISON: None. FINDINGS: Bones: No fractures or dislocations. No suspicious bony lesions. Soft tissues: Small joint effusion. No suspicious soft tissue calcifications. IMPRESSION: No acute osseous abnormality. Small joint effusion. If symptoms persist with conservativ e management, further evaluation with CT or MRI may be obtained. Reviewed by: Topher Alexander MD on 04/16/2020 4:56 PM PDT Approved by: Topher Alexander MD on 04/16/2020 4:56 PM PDT Station ID: [id number]
== END 2020-04-16 17:03 | disposition home or self-care (01) ==
LOC: ED 15:49
DX: S86.911A Strain of unspecified muscle(s) and tendon(s) at lower leg level, right leg, initial encounter (principal); X50.9XXA Other and unspecified overexertion or strenuous movements or postures, initial encounter; Y99.0 Civilian activity done for income or pay; I10 Essential (primary) hypertension; Z79.82 Long term (current) use of aspirin; F17.200 Nicotine dependence, unspecified, uncomplicated
CPT/HCPCS: 73564; 99283; A9270

== ENCOUNTER 2020-12-10 20:14 | Emergency (ER) | payer OTHER ==
[2020-12-10 20:42] LABS: BASOPHILS # (AUTO) 0.1 10^3/uL (0.0-0.1); BASOPHILS % (AUTO) 0.7 %; EOSINOPHILS # (AUTO) 0.2 10^3/uL (0.0-0.7); EOSINOPHILS % (AUTO) 2.7 %; HCT - HEMATOCRIT 39.3 % (37.0-47.0); HGB - HEMOGLOBIN 12.3 g/dL (12.0-16.0); LYMPHOCYTES # (AUTO) 2.6 10^3/uL (1.5-3.5); LYMPHOCYTES % (AUTO) 28.4 %; MEAN CORPUSCULAR HEMOGLOBIN 25.2 pg (27.0-31.0); MEAN CORPUSCULAR HGB CONC 31.3 g/dL (32.0-36.0); MEAN CORPUSCULAR VOLUME 80.4 fL (81.0-99.0); MEAN PLATELET VOLUME 8.8 fL (7.9-10.8); MONOCYTES # (AUTO) 0.7 10^3/uL (0.0-1.0); MONOCYTES % (AUTO) 7.2 %; NEUTROPHILS # (AUTO) 5.5 10^3/uL (1.5-6.6); NEUTROPHILS % (AUTO) 60.8 %; PLT - PLATELET COUNT 305 10^3/uL (130-450); RED BLOOD COUNT 4.89 10^6/uL (4.20-5.40); RED CELL DISTRIBUTION WIDTH 15.9 % (12.0-15.0)
[2020-12-10 20:55] LABS: ALBUMIN 4.2 g/dL (3.2-5.5); ALBUMIN/GLOBULIN RATIO 1.2 (1.0-2.2); BILIRUBIN,TOTAL 0.5 mg/dL (0.2-1.0); CALCIUM 9.2 mg/dL (8.5-10.3); CREATININE 0.5 mg/dL (0.4-1.0); POTASSIUM 2.9 mmol/L (3.5-5.0); TOTAL PROTEIN 7.6 g/dL (6.7-8.2)
--- NOTE | 2020-12-10 20:57 | ED Physician Documentation ---
PD HPI CHEST PAIN - Stated complaint Stated Complaint: CP - Chief complaint Chief Complaint: Cardiac - History obtained from History obtained from: Patient - History of Present Illness Timing - onset: Enter time (18:00), Today Timing - onset during: Rest Timing - details: Abrupt onset Pain level max: 6 Pain level now: 2 Quality: Sharp Location: Left chest Radiation: Left upper extremity (left shoulder) Improved by: Nothing Worsened by: Movement Associated symptoms: No: Shortness of air, Diaphoresis, Nausea, Vomiting, Feeling faint / dizzy Similar symptoms before: Has not had sx before Recently seen: Not recently seen - Additional information Additional information: He complains of left chest pain that radiates to her left shoulder, sudden onset while at home at rest at approximately 6 PM today. The pain is exacerbated with movement. she has had similar symptoms in the past and has had previous visits to this emergency department for similar symptoms. She says the cause has not been found with previous workups. Review of Systems Constitutional: denies: Fever Cardiac: reports: Chest pain / pressure. denies: Palpitations, Pedal edema Respiratory: reports: Reviewed and negative GI: reports: Reviewed and negative Musculoskeletal: denies: Extremity swelling Neurologic: denies: Headache PD PAST MEDICAL HISTORY - Past Medical History Cardiovascular: Hypertension Respiratory: None Endocrine/Autoimmune: None GI: None HEENT: None Derm: None - Past Surgical History Past Surgical History: No - Present Medications Home Medications: Ambulatory Orders Medication Instructions Recorded Confirmed Aspirin Chewable [[place] 81 mg PO DAILY 09/28/13 12/11/20 Aspirin] Lisinopril/Hydrochlorothiazide 1 each PO DAILY 09/28/13 12/11/20 [Lisinopril-Hctz 20-25 mg Tab] - Allergies Allergies/Adverse Reactions: Allergies Allergy/AdvReac Type Severity Reaction Status Date / Time No Known Drug Allergies Allergy Verified 12/10/20 20:32 - Social History Does the pt smoke?: Yes Smoking Status: Current every day smoker Does the pt drink ETOH?: No Does the pt have substance abuse?: No - Immunizations Immunizations are current?: No Immunizations: TDAP >10years/unknown - POLST Patient has POLST: No PD ED PE NORMAL - Vitals Vital signs reviewed: Yes - General General: Alert and oriented X 3, No acute distress, Well developed/nourished - Cardiac Cardiac: RRR, No murmur, No gallop, No rub - Respiratory Respiratory: No respiratory distress, Clear bilaterally - Abdomen Abdomen: Soft, Non tender - Extremities Extremities: No edema Results - Vitals Vitals: Vital Signs - 24 hr 12/10/20 12/10/20 12/10/20 20:19 22:15 22:23 Temperature 36.1 C L Heart Rate 106 H Respiratory 18 Rate Blood Pressure 206/118 H 214/125 H 201/124 H O2 Saturation 98 12/10/20 12/10/20 12/10/20 22:44 23:07 23:11 Temperature Heart Rate 93 80 Respiratory 14 Rate Blood Pressure 183/109 H 186/125 H 190/121 H O2 Saturation 98 12/10/20 12/11/20 12/11/20 23:21 00:00 00:06 Temperature Heart Rate 78 80 78 Respiratory 16 21 19 Rate Blood Pressure 176/103 H 169/102 H 176/109 H O2 Saturation 97 98 12/11/20 12/11/20 00:11 00:14 Temperature 37.0 C Heart Rate 75 79 Respiratory 16 20 Rate Blood Pressure 163/102 H 177/115 H O2 Saturation 97 98 Oxygen O2 Source Room air - EKG (time done) No standard instances Rate: Rate (enter#) (95) Rhythm: NSR [place]: Normal Intervals: Normal [place] QRS: LVH Ischemia: Normal ST segments - Labs Labs: Laboratory Tests 12/10/20 12/10/20 12/10/20 20:37 20:37 20:37 WBC 9.0 RBC 4.89 Hgb 12.3 Hct 39.3 MCV 80.4 L MCH 25.2 L MCHC 31.3 L RDW 15.9 H Plt Count 305 MPV 8.8 Neut # (Auto) 5.5 Lymph # (Auto) 2.6 [place] # (Auto) 0.7 Eos # (Auto) 0.2 Baso # (Auto) 0.1 Absolute Nucleated RBC 0.00 Nucleated RBC % 0.0 Sodium 140 Potassium 2.9 L Chloride 103 Carbon Dioxide 27 Anion Gap 10.0 BUN 12 Creatinine 0.5 Estimated GFR (MDRD) 130 Glucose 109 H Calcium 9.2 Total Bilirubin 0.5 AST 16 ALT 16 Alkaline Phosphatase 86 Troponin I High Sens 23.1 H* Total Protein 7.6 Albumin 4.2 Globulin 3.4 Albumin/Globulin Ratio 1.2 Lipase 32 06/23/21 22:43 WBC RBC Hgb Hct MCV MCH MCHC RDW Plt Count MPV Neut # (Auto) Lymph # (Auto) [place] # (Auto) Eos # (Auto) Baso # (Auto) Absolute Nucleated RBC Nucleated RBC % Sodium Potassium Chloride Carbon Dioxide Anion Gap BUN Creatinine Estimated GFR (MDRD) Glucose Calcium Total Bilirubin AST ALT Alkaline Phosphatase Troponin I High Sens 24.3 H* Total Protein Albumin Globulin Albumin/Globulin Ratio Lipase - Rads (name of study) cxr Radiology: Prelim report reviewed, See rad report PD MEDICAL DECISION MAKING - ED course Complexity details: reviewed old records, reviewed results, re-evaluated patient, considered differential, d/w patient ED course: patient presents with chest pain rates were left shoulder, onset while at rest at 6 PM today at home. She has had emergency department work ups for some similar symptoms in the past although it has been a few years. No diagnoses were achieved with these workups. Her EKG does not show any acute or concerning findings. Her troponin is mildly elevated at 23, but a to a repeat shows an insignificant elevation with a result of 24. She is noted to have a low potassium and is given oral potassium while in emergency department and advised to have this recheck by her primary care provider. Her blood pressure readings were consistently elevated during her ED stay. In discussing this, she reveals that she stopped her blood pressure medication two months ago on her own. She has one of the two with her, lisinopril/HCTZ and she takes a dose when I advise her to do so. she is subsequently given 3 doses 5mg iv lopressor with mild improvement in her hypertension. she says she has a second antihypertensive, which she is also supposed to be taking, at home and will take it when she gets home. she has a BP cuff at home and I advised her to measure her BP 2-3 times per day, and to arrange next available follow up with her PMD for reevaluation of her HTN, hypokalemia, and chest pain. Departure - Departure Disposition: 01 Home, Self Care Clinical Impression: Hypokalemia Chest pain Qualifiers: Chest pain type: unspecified Qualified Code(s): R07.9 - Chest pain, unspecified Hypertension Qualifiers: Hypertension type: essential hypertension Qualified Code(s): I10 - Essential (primary) hypertension Condition: Good Instructions: ED Chest Pain Atypical Unkn Cause, ED Hypertension Conf Out Of Control, ED Potassium Deficiency Follow-Up: Angeles Lemus ARNP [Primary Care Provider] - Within 1 week (Call in the morning to arrange for next available appointment. You will need to follow up for your low potassium, your high blood pressure, and your chest discomfort) Comments: Resume taking your prescription blood pressure medications as prescribed. Discharge Date/Time: 12/11/20 00:16
--- NOTE | 2020-12-10 20:59 | XRAY Report ---
PROCEDURE: Chest 1 View X-Ray INDICATIONS: Chest Pain TECHNIQUE: One view of the chest was acquired. COMPARISON: CXR 12/15/2018, 07/27/2015. FINDINGS: Surgical changes and devices: None. Lungs and pleura: No pleural effusions or pneumothorax. Lungs appear clear. Mediastinum: Mediastinal contours appear unchanged. Heart size is within normal limits accounting f or technique. Bones and chest wall: No suspicious bony lesions. Overlying soft tissues appear unremarkable. IMPRESSION: No acute cardiopulmonary abnormality. Reviewed by: Juan A Pacheco MD on 12/10/2020 8:58 PM PDT Approved by: Juan A Pacheco MD on 12/10/2020 8:58 PM PDT Station ID: [id number]
[2020-12-10] MEDS ORDERED: POTASSIUM CHLORIDE 20 MEQ TABLET PO STA (21:21)
[2020-12-10] MEDS ORDERED: METOPROLOL 5 MG/5 ML VIAL IVP STA ×3 (22:28→23:56)
[2020-12-11 00:19] VITALS: BP 177/115
== END 2020-12-11 00:16 | disposition home or self-care (01) ==
LOC: ED 20:14
DX: R07.9 Chest pain, unspecified (principal); M25.512 Pain in left shoulder; E87.6 Hypokalemia; R79.89 Other specified abnormal findings of blood chemistry; I10 Essential (primary) hypertension; T46.4X6A Underdosing of angiotensin-converting-enzyme inhibitors, initial encounter; Z91.128 Patient's intentional underdosing of medication regimen for other reason; F17.200 Nicotine dependence, unspecified, uncomplicated; Z79.82 Long term (current) use of aspirin
CPT/HCPCS: 36415; 71045; 80053; 83690; 84484; 85025; 93005; 96374; 96376; 99284; A9270

== ENCOUNTER 2021-01-15 12:12 | Outpatient (CLI) | payer OTHER ==
--- NOTE | 2021-01-16 10:49 | Mammography Report ---
BILATERAL DIGITAL DIAGNOSTIC MAMMOGRAM 3D/2D: 01/15/2021 CLINICAL: Palpable left breast lump. Comparison is made to exam dated: 10/04/2013 mammogram - [facility]. The tissue of thony th breasts is heterogeneously dense. This may lower the sensitivity of mammography. No significant masses, calcifications, or other findings are seen in either breast. IMPRESSION: INCOMPLETE: NEEDS ADDITIONAL IMAGING EVALUATION There is no abnormality seen in the left breast to correspond with the pain in the upper outer quadra nt, however, ultrasound is recommended. Ultrasound will be performed immediately following the current exam. This exam was interpreted at Station ID: [id number]. NOTE: For mammograms, a report in lay terms will be sent to the patient. Approximately 15% of breast malignancies will not be visualized mammographically. In the management of a palpable breast mass, a negative mammogram must not discourage biopsy of a clinically suspicious lesion. Electronically Signed By: Vicente Vicente M.D. ddp/:01/15/2021 13:20:33 ACR BI-RADS Category 0: Incomplete 3340F PARENCHYMAL PATTERN: (D) - The breast(s) demonstrate(s) heterogeneously dense fibroglandular parelijah lomeli. BI-RADS CATEGORY: (0) - 0 Ultrasound [id number] Immediate follow-up LATERALITY: (B)
--- NOTE | 2021-01-16 10:49 | Ultrasound Report ---
LIMITED ULTRASOUND OF LEFT BREAST: 01/15/2021 CLINICAL: Focal left breast pain. Comparison is made to exams dated: 01/15/2021 mammogram - [facility] and 10/04/2013 mammogram - [facility]. Real-time ultrasound of the left breast 3 o'clock region was performed on the areas of interest. Gr ay scale images of the real-time examination were reviewed. No discrete cystic or solid mass lesion identified in the area of focal pain. IMPRESSION: NEGATIVE There is no sonographic evidence of malignancy. There is no abnormality seen in the left breast to correspond with the pain at 3 o'clock, however, cl inical followup is recommended. A 1 year screening mammogram is recommended. This exam was interpreted at Station ID: [id number]. Electronically Signed By: Vicente Vicente M.D. ddp/:01/15/2021 13:56:05 Ultrasound BI-RADS: 1 Negative BI-RADS CATEGORY: (1) - 1 RECOMMENDATION: (ANNUAL) - Recommend routine annual screening mammography. [id number] 1 year screening LATERALITY: (B)
== END 2021-01-15 12:13 | disposition home or self-care (01) ==
LOC: DI 12:12
PROVIDERS: ATTEND Student in an Organized Health Care Education/Training Program
DX: N63.20 Unspecified lump in the left breast, unspecified quadrant (principal); R92.8 Other abnormal and inconclusive findings on diagnostic imaging of breast; N63.0 Unspecified lump in unspecified breast

== ENCOUNTER 2021-05-16 11:44 | Emergency (ER) | payer OTHER ==
[2021-05-16] MEDS ORDERED: ASPIRIN CHEW 81 MG TABLET PO STA (12:13)
--- NOTE | 2021-05-16 12:13 | ED Physician Documentation ---
PD HPI CHEST PAIN - Stated complaint Stated Complaint: CHEST PX - Chief complaint Chief Complaint: Cardiac - History obtained from History obtained from: Patient (51-year-old woman with history of hypertension presents with chest pain radiating to the upper back starting at 11 AM this morning while doing light work around the house, specifically making a salad. She is never had this before. No heart problems that she knows of. Declines pain medication.) Review of Systems Ten Systems: 10 systems reviewed and negative Constitutional: denies: Fever, Chills, Myalgias Ears: reports: Reviewed and negative Nose: reports: Reviewed and negative PD PAST MEDICAL HISTORY - Past Medical History Cardiovascular: Hypertension Respiratory: None Endocrine/Autoimmune: None GI: None HEENT: None Derm: None - Past Surgical History Past Surgical History: No - Present Medications Home Medications: Ambulatory Orders Medication Instructions Recorded Confirmed Aspirin Chewable [[place] 81 mg PO DAILY 09/28/13 12/11/20 Aspirin] Lisinopril/Hydrochlorothiazide 1 each PO DAILY 09/28/13 12/11/20 [Lisinopril-Hctz 20-25 mg Tab] - Allergies Allergies/Adverse Reactions: Allergies Allergy/AdvReac Type Severity Reaction Status Date / Time No Known Drug Allergies Allergy Verified 05/16/21 12:02 - Social History Does the pt smoke?: Yes Smoking Status: Current every day smoker Does the pt drink ETOH?: No Does the pt have substance abuse?: No - Immunizations Immunizations are current?: No Immunizations: TDAP >10years/unknown - POLST Patient has POLST: No PD ED PE NORMAL - Vitals Vital signs reviewed: Yes - General General: Alert and oriented X 3, Other (Hypertensive, appears comfortable and in no distress) - HEENT HEENT: PERRL, EOMI - Neck Neck: Supple, no meningeal sign, No bony TTP - Cardiac Cardiac: RRR, No murmur, Strong equal pulses (Equal radial pulses) - Respiratory Respiratory: No respiratory distress, Clear bilaterally - Abdomen Abdomen: Soft, Non tender - Back Back: No CVA TTP, No spinal TTP - Derm Derm: Normal color, Warm and dry - Extremities Extremities: No edema, No calf tenderness / cord - Neuro Neuro: Alert and oriented X 3, Normal speech Results - Vitals Vitals: Vital Signs - 24 hr 05/16/21 05/16/21 05/16/21 11:45 12:23 12:30 Temperature 36.5 C Heart Rate 93 96 91 Respiratory 20 25 H 20 Rate Blood Pressure 171/100 H 164/99 H 154/102 H O2 Saturation 98 97 97 05/16/21 05/16/21 05/16/21 12:32 13:00 14:35 Temperature Heart Rate 105 H 91 90 Respiratory 18 18 18 Rate Blood Pressure 154/102 H 163/106 H 198/110 H O2 Saturation 98 98 95 05/16/21 05/16/21 14:37 14:38 Temperature Heart Rate 100 Respiratory 29 H Rate Blood Pressure 176/107 H 164/99 H O2 Saturation 100 Oxygen O2 Source Room air - EKG (time done) 1158 Rate: Rate (enter#) (92) Rhythm: NSR [place]: Normal Intervals: Normal [place] QRS: Normal Ischemia: Normal ST segments - Labs Labs: Laboratory Tests 05/16/21 05/16/21 05/16/21 12:15 12:15 12:15 WBC 8.2 RBC 5.01 Hgb 14.1 Hct 43.8 MCV 87.4 MCH 28.1 MCHC 32.2 RDW 14.4 Plt Count 308 MPV 8.8 Neut # (Auto) 5.1 Lymph # (Auto) 2.4 [place] # (Auto) 0.5 Eos # (Auto) 0.2 Baso # (Auto) 0.1 Absolute Nucleated RBC 0.00 Nucleated RBC % 0.0 Sodium 139 Potassium 3.3 L Chloride 100 L Carbon Dioxide 29 Anion Gap 10.0 BUN 7 Creatinine 0.4 Estimated GFR (MDRD) 168 Glucose 98 Calcium 9.4 Total Bilirubin 0.4 AST 21 ALT 24 Alkaline Phosphatase 99 Troponin I High Sens 8.6 Total Protein 8.1 Albumin 4.3 Globulin 3.8 Albumin/Globulin Ratio 1.1 Lipase 40 - Rads (name of study) CT angiography of the chest is unremarkable Radiology: EMP read contemporaneously PD MEDICAL DECISION MAKING - ED course ED course: 51-year-old woman with chest pain that is reproducible with palpation and movement of the left arm without evidence of ACS. It does radiate to the back, so angiography of the chest was done without positive findings. Departure - Departure Disposition: 01 Home, Self Care Clinical Impression: Atypical chest pain Condition: Good Record reviewed to determine appropriate education?: Yes Instructions: ED Chest Pain Atypical Unkn Cause Comments: Your work-up today was unremarkable with pretty normal EKG, negative troponin and CT angiography of the chest which was normal ruling out aortic dissection and blood clots. By history this seems to be muscular, return for new or worsening symptoms. Follow-up with your primary care physician, next Available appointment. Continue current medications.
[2021-05-16] MEDS ORDERED: IOVERSOL 320 100 ML VIAL IVP ONE ×2 (12:25→14:11)
[2021-05-16 12:27] LABS: BASOPHILS # (AUTO) 0.1 10^3/uL (0.0-0.1); BASOPHILS % (AUTO) 0.6 %; EOSINOPHILS # (AUTO) 0.2 10^3/uL (0.0-0.7); EOSINOPHILS % (AUTO) 2.3 %; HCT - HEMATOCRIT 43.8 % (37.0-47.0); HGB - HEMOGLOBIN 14.1 g/dL (12.0-16.0); LYMPHOCYTES # (AUTO) 2.4 10^3/uL (1.5-3.5); LYMPHOCYTES % (AUTO) 28.7 %; MEAN CORPUSCULAR HEMOGLOBIN 28.1 pg (27.0-31.0); MEAN CORPUSCULAR HGB CONC 32.2 g/dL (32.0-36.0); MEAN CORPUSCULAR VOLUME 87.4 fL (81.0-99.0); MEAN PLATELET VOLUME 8.8 fL (7.9-10.8); MONOCYTES # (AUTO) 0.5 10^3/uL (0.0-1.0); MONOCYTES % (AUTO) 6.6 %; NEUTROPHILS # (AUTO) 5.1 10^3/uL (1.5-6.6); NEUTROPHILS % (AUTO) 61.6 %; PLT - PLATELET COUNT 308 10^3/uL (130-450); RED BLOOD COUNT 5.01 10^6/uL (4.20-5.40); RED CELL DISTRIBUTION WIDTH 14.4 % (12.0-15.0); WHITE BLOOD COUNT 8.2 x10^3/uL (4.8-10.8)
[2021-05-16 12:58] LABS: ALBUMIN 4.3 g/dL (3.2-5.5); ALBUMIN/GLOBULIN RATIO 1.1 (1.0-2.2); BILIRUBIN,TOTAL 0.4 mg/dL (0.2-1.0); CALCIUM 9.4 mg/dL (8.5-10.3); CREATININE 0.4 mg/dL (0.4-1.0); POTASSIUM 3.3 mmol/L (3.5-5.0); TOTAL PROTEIN 8.1 g/dL (6.7-8.2)
--- NOTE | 2021-05-16 14:51 | CT Report ---
PROCEDURE: ANGIO CHEST W/WO INDICATIONS: chest/back pain, aorta protocol CONTRAST: IV CONTRAST: Optiray 320 ml: 80 PO CONTRAST: *NO PO CONTRAST TECHNIQUE: After the administration of intravenous contrast, 2 mm axial images were acquired from the pulmonary apices to the posterior costophrenic angles during the arterial phase. In addition, 1 mm lung kernel and 5 mm soft tissue kernel reconstructions were performed. 3-dimensional coronal oblique maximum int ensity projection (MIP) reformats, 8 mm axial MIP, and 5 mm coronal and sagittal MPR reformats were t hen performed through the thorax. For radiation dose reduction, the following was used: automated exp osure control, adjustment of mA and/or kV according to patient size. COMPARISON: No prior CT FINDINGS: Image quality: Excellent. Pulmonary arteries: Pulmonary arteries are normal in size, and demonstrate no intraluminal filling d efects to suggest central pulmonary embolism. Lungs and pleura: Lungs are clear. No pleural effusions or pneumothorax. Central and peripheral ai rways are patent. Mediastinum: Heart size is normal, without pericardial effusion. No mediastinal or hilar adenopathy . Thoracic aorta is normal in caliber and enhancement. Esophagus is normal in caliber, without hiat al hernia. Bones and chest wall: No suspicious bony lesions. Ribs and thoracic spine appear intact throughout. No axillary or supraclavicular adenopathy. The thyroid is normal in size and there are no incident al findings. Abdomen: Visualized upper abdominal solid organs appear normal in the early arterial phase of enhanc ement. IMPRESSION: 1. No pulmonary embolism. 2. No acute abnormality of the chest. Reviewed by: Mayito Barahona on 05/16/2021 2:49 PM PST Approved by: Mayito Barahona on 05/16/2021 2:49 PM PST Station ID: [id number]
[2021-05-16 15:08] VITALS: BP 190/100
== END 2021-05-16 15:08 | disposition home or self-care (01) ==
LOC: ED 11:44
DX: R07.89 Other chest pain (principal); M54.6 Pain in thoracic spine; I10 Essential (primary) hypertension; F17.200 Nicotine dependence, unspecified, uncomplicated; Z79.82 Long term (current) use of aspirin
CPT/HCPCS: 36415; 71275; 80053; 83690; 84484; 85025; 99284; A9270; Q9967

== ENCOUNTER 2021-07-26 12:04 | Emergency (ER) | payer OTHER ==
[2021-07-26 13:33] LABS: BASOPHILS % (AUTO) 0.5 %; EOSINOPHILS # (AUTO) 0.2 10^3/uL (0.0-0.7); EOSINOPHILS % (AUTO) 1.9 %; HGB - HEMOGLOBIN 14.6 g/dL (12.0-16.0); LYMPHOCYTES # (AUTO) 2.3 10^3/uL (1.5-3.5); LYMPHOCYTES % (AUTO) 26.1 %; MEAN CORPUSCULAR HEMOGLOBIN 29.2 pg (27.0-31.0); MEAN CORPUSCULAR HGB CONC 33.2 g/dL (32.0-36.0); MEAN PLATELET VOLUME 8.5 fL (7.9-10.8); MONOCYTES # (AUTO) 0.7 10^3/uL (0.0-1.0); MONOCYTES % (AUTO) 8.4 %; NEUTROPHILS # (AUTO) 5.5 10^3/uL (1.5-6.6); NEUTROPHILS % (AUTO) 62.9 %; PLT - PLATELET COUNT 275 10^3/uL (130-450); RED CELL DISTRIBUTION WIDTH 13.5 % (12.0-15.0); WHITE BLOOD COUNT 8.7 x10^3/uL (4.8-10.8)
--- NOTE | 2021-07-26 13:36 | ED Physician Documentation ---
History of Present Illness - Stated complaint Stated Complaint: NUMBNESS,TINGLING R HAND/LIPS - Chief complaint Chief Complaint: Neuro - History obtained from History obtained from: Patient - History of Present Illness Timing: Today Pain level max: 0 Pain level now: 0 - Additonal information Additional information: 51 year old female states that she has been under stress lately. States at that grocery store today felt tingling in the right hand. while this was happening her lips began to tingle. these have resolved, but her toes were tingling shortly thereafter on both feet. Has had issues with her potassium in the past. Has not had this checked recently. No difficulty speaking or with memory. Nothing makes it better or worse. Review of Systems Constitutional: denies: Fever, Chills Ears: denies: Ear pain Nose: denies: Rhinorrhea / runny nose, Congestion Throat: denies: Sore throat Cardiac: denies: Chest pain / pressure GI: denies: Vomiting, Diarrhea Skin: denies: Rash Musculoskeletal: denies: Neck pain, Back pain Neurologic: denies: Headache PD PAST MEDICAL HISTORY - Past Medical History Cardiovascular: Hypertension Respiratory: None Endocrine/Autoimmune: None GI: None HEENT: None Derm: None - Past Surgical History Past Surgical History: No - Present Medications Home Medications: Ambulatory Orders Medication Instructions Recorded Confirmed Aspirin Chewable [[place] 81 mg PO DAILY 09/28/13 12/11/20 Aspirin] Lisinopril/Hydrochlorothiazide 1 each PO DAILY 09/28/13 12/11/20 [Lisinopril-Hctz 20-25 mg Tab] - Allergies Allergies/Adverse Reactions: Allergies Allergy/AdvReac Type Severity Reaction Status Date / Time No Known Drug Allergies Allergy Verified 07/26/21 12:13 - Social History Does the pt smoke?: Yes Smoking Status: Current every day smoker Does the pt drink ETOH?: No Does the pt have substance abuse?: No - Immunizations Immunizations are current?: No Immunizations: TDAP >10years/unknown - POLST Patient has POLST: No PD ED PE NORMAL - Vitals Vital signs reviewed: Yes - General General: Alert and oriented X 3, No acute distress - HEENT HEENT: PERRL, EOMI, Moist mucous membranes - Neck Neck: Supple, no meningeal sign, No bony TTP - Cardiac Cardiac: RRR, Strong equal pulses - Respiratory Respiratory: No respiratory distress, Clear bilaterally - Abdomen Abdomen: Soft, Non tender, Non distended - Back Back: No spinal TTP - Derm Derm: Warm and dry - Extremities Extremities: No edema, No calf tenderness / cord - Neuro Neuro: Alert and oriented X 3, shank scourer 2-12 intact, No motor deficit, No sensory deficit, Normal speech Eye Opening: Spontaneous Motor: Obeys Commands Verbal: Oriented GCS Score: 15 - Psych Psych: Normal mood, Normal affect Results - Vitals Vitals: Vital Signs - 24 hr 07/26/21 07/26/21 07/26/21 12:09 12:13 14:13 Temperature 36.3 C L Heart Rate 102 H 101 H 89 Respiratory 18 18 Rate Blood Pressure 187/100 H 167/106 H 150/104 H O2 Saturation 98 99 99 Oxygen O2 Source Room air - EKG (time done) 1329 Rate: Rate (enter#) (91) Rhythm: NSR [place]: Normal Intervals: Normal [place] QRS: Normal, LVH Ischemia: Normal ST segments - Labs Labs: Laboratory Tests 07/26/21 07/26/21 13:27 13:27 WBC 8.7 RBC 5.00 Hgb 14.6 Hct 44.0 MCV 88.0 MCH 29.2 MCHC 33.2 RDW 13.5 Plt Count 275 MPV 8.5 Neut # (Auto) 5.5 Lymph # (Auto) 2.3 [place] # (Auto) 0.7 Eos # (Auto) 0.2 Baso # (Auto) 0.0 Absolute Nucleated RBC 0.00 Nucleated RBC % 0.0 Sodium 139 Potassium 3.5 Chloride 102 Carbon Dioxide 28 Anion Gap 9.0 BUN 15 Creatinine 0.7 Estimated GFR (MDRD) 88 L Glucose 100 Calcium 9.0 Phosphorus 3.3 Magnesium 2.1 Total Bilirubin 1.0 AST 21 ALT 28 Alkaline Phosphatase 90 Total Protein 7.3 Albumin 3.9 Globulin 3.4 Albumin/Globulin Ratio 1.1 PD MEDICAL DECISION MAKING - ED course Complexity details: reviewed results, re-evaluated patient, considered differential, d/w patient ED course: Symptoms are not consistent with stroke. No indication for emergent neuroimaging. Appears to be anxiety/stress related. No significant lab abnormalities. Symptoms resolved in the emergency department. We will have her follow-up closely with her doctor for further care. NIH stroke scale of 0 in the emergency department. Patient counseled regarding signs and symptoms for which I believe and urgent re-evaluation would be necessary. Patient with good understanding of and agreement to plan and is comfortable going home at this time This document was made in part using voice recognition software. While efforts are made to proofread this document, sound alike and grammatical errors may occur. Departure - Departure Disposition: 01 Home, Self Care Clinical Impression: Paresthesia Condition: Good Instructions: ED Paraesthesias Follow-Up: your,doctor in 1 week [Other] - Within 1 week Comments: Please follow-up with your doctor for further care. Your electrolytes are normal today. This could be due to stress or anxiety. There is no evidence of stroke today. Please return if you worsen. Discharge Date/Time: 07/26/21 14:23 NIHSS - Time Time: 13:40 - Level of Consciousness Level of consciousness: (0) Alert, Keenly responsive LOC Questions: (0) Answers both Q's correct LOC Commands: (0) Performs both correctly - Gaze Best Gaze: (0) Normal - Visual Visual: (0) No loss - Facial Palsy Facial Palsy: (0) Normal, symmetrical movement - Motor Arms (both separate) Motor Arm (right): (0) No drift Motor Arm (left): (0) No drift - Motor Legs (both separate) Motor Leg (right): (0) No drift Motor Leg (left): (0) No drift - Limb Ataxia Limb Ataxia: (0) Absent - Sensory Sensory: (0) Normal - Best Language Best Language: (0) No aphasia - Dysarthria Dysarthria: (0) Normal - Extinction and Inattention (formally neg Extinction and inattention: (0) No abnormality - Total Score/Results Total Score/Result: 0
[2021-07-26 13:51] LABS: ALBUMIN 3.9 g/dL (3.2-5.5); ALBUMIN/GLOBULIN RATIO 1.1 (1.0-2.2); CREATININE 0.7 mg/dL (0.4-1.0); MAGNESIUM 2.1 mg/dL (1.7-2.8); PHOSPHORUS 3.3 mg/dL (2.5-4.6); POTASSIUM 3.5 mmol/L (3.5-5.0); TOTAL PROTEIN 7.3 g/dL (6.7-8.2)
[2021-07-26 14:23] VITALS: BP 150/104
== END 2021-07-26 14:23 | disposition home or self-care (01) ==
LOC: ED 12:04
DX: R20.2 Paresthesia of skin (principal); F43.9 Reaction to severe stress, unspecified; F41.9 Anxiety disorder, unspecified; I10 Essential (primary) hypertension; F17.200 Nicotine dependence, unspecified, uncomplicated; Z79.82 Long term (current) use of aspirin
CPT/HCPCS: 36415; 80053; 83735; 84100; 85025; 93005; 99283; 99284

== ENCOUNTER 2023-02-08 19:28 | Emergency (ER) | payer OTHER ==
[2023-02-08 19:58] LABS: BASOPHILS # (AUTO) 0.1 10^3/uL (0.0-0.1); BASOPHILS % (AUTO) 0.6 %; EOSINOPHILS # (AUTO) 0.2 10^3/uL (0.0-0.7); EOSINOPHILS % (AUTO) 1.5 %; HCT - HEMATOCRIT 43.4 % (37.0-47.0); HGB - HEMOGLOBIN 14.6 g/dL (12.0-16.0); LYMPHOCYTES # (AUTO) 3.5 10^3/uL (1.5-3.5); LYMPHOCYTES % (AUTO) 31.8 %; MEAN CORPUSCULAR HEMOGLOBIN 29.4 pg (27.0-31.0); MEAN CORPUSCULAR HGB CONC 33.6 g/dL (32.0-36.0); MEAN CORPUSCULAR VOLUME 87.3 fL (81.0-99.0); MEAN PLATELET VOLUME 9.1 fL (7.9-10.8); MONOCYTES # (AUTO) 0.9 10^3/uL (0.0-1.0); MONOCYTES % (AUTO) 8.3 %; NEUTROPHILS # (AUTO) 6.3 10^3/uL (1.5-6.6); NEUTROPHILS % (AUTO) 57.4 %; PLT - PLATELET COUNT 307 10^3/uL (130-450); RED BLOOD COUNT 4.97 10^6/uL (4.20-5.40); RED CELL DISTRIBUTION WIDTH 12.5 % (12.0-15.0); WHITE BLOOD COUNT 10.9 x10^3/uL (4.8-10.8)
--- NOTE | 2023-02-08 20:04 | ED Physician Documentation ---
History of Present Illness - Stated complaint Stated Complaint: CHEST PX - Chief complaint Chief Complaint: Cardiac - Additonal information Additional information: Patient 52-year-old female presenting to the emergency department with left-s ided chest pain. Began acutely at approximately 2:00. Is unchanged with physical activity or deep inspiration. Reports had pain similar to this in the past but never this severe. Denies any cardiac risk stratification testing including any echocardiograms or stress test in the past. Reports history of hypertension for which she takes losartan. Denies any history of dyslipidemia but does report a history of being prediabetic. Also reports a longstanding smoking history. Denies any travel or history of blood clots. Review of Systems Constitutional: denies: Fever Eyes: denies: Loss of vision Ears: denies: Loss of hearing Nose: denies: Rhinorrhea / runny nose Throat: denies: Dental pain / toothache Cardiac: reports: Chest pain / pressure Respiratory: denies: Dyspnea GI: denies: Abdominal Pain : denies: Dysuria Skin: denies: Rash, Abrasion (s) Musculoskeletal: denies: Neck pain Neurologic: denies: Generalized weakness PD PAST MEDICAL HISTORY - Past Medical History Cardiovascular: Hypertension Respiratory: None Endocrine/Autoimmune: None GI: None HEENT: None Derm: None - Past Surgical History Past Surgical History: No - Present Medications Home Medications: Ambulatory Orders Medication Instructions Recorded Confirmed Aspirin Chewable [[place] 81 mg PO DAILY 09/28/13 12/11/20 Aspirin] Lisinopril/Hydrochlorothiazide 1 each PO DAILY 09/28/13 12/11/20 [Lisinopril-Hctz 20-25 mg Tab] HYDROcod/ACETAM 5/325 [[place] 5/325] 1 tab PO Q6H #10 tab 02/08/23 - Allergies Allergies/Adverse Reactions: Allergies Allergy/AdvReac Type Severity Reaction Status Date / Time No Known Drug Allergies Allergy Verified 02/08/23 19:34 - Social History Does the pt smoke?: Yes Smoking Status: Current every day smoker Does the pt drink ETOH?: No Does the pt have substance abuse?: No - Immunizations Immunizations are current?: No Immunizations: TDAP >10years/unknown - POLST Patient has POLST: No PD ED PE NORMAL - General General: Alert and oriented X 3, No acute distress, Well developed/nourished - HEENT HEENT: Atraumatic - Neck Neck: Supple, no meningeal sign - Cardiac Cardiac: RRR, No gallop, Strong equal pulses, Other (Left-sided chest wall tenderness reproducible with palpation.) - Respiratory Respiratory: No respiratory distress - Abdomen Abdomen: Normal bowel sounds, Non tender - Female Female : Deferred - Rectal Rectal: Deferred - Back Back: No CVA TTP - Derm Derm: Normal color - Extremities Extremities: No deformity, No edema - Neuro Neuro: Alert and oriented X 3, navy fighter pilot 2-12 intact, No motor deficit, Normal speech Results - Vitals Vitals: Vital Signs - 24 hr 02/08/23 02/08/23 02/08/23 19:35 20:05 20:44 Temperature 36.5 C Heart Rate 103 H 88 88 Respiratory 16 18 18 Rate Blood Pressure 200/110 H 170/114 H 201/142 H O2 Saturation 99 98 97 Oxygen O2 Source Room air - EKG (time done) 1951 EKG releavant findings:: EKG personally interpreted by author of this note. Relevant findings are: Sinus rhythm with rate 80 bpm. Normal axis. Normal MD, QRS intervals. QTc borderline at [address] segment elevations. Nonspecific ST-T wave abnormalities noted throughout. infrequent premature ventricular complex noted. Premature ventricular complexes are new finding in comparison to previous 07/26/2021, otherwise no significant changes. - Labs Labs: Laboratory Tests 02/08/23 02/08/23 02/08/23 19:47 19:47 19:47 WBC 10.9 H RBC 4.97 Hgb 14.6 Hct 43.4 MCV 87.3 MCH 29.4 MCHC 33.6 RDW 12.5 Plt Count 307 MPV 9.1 Neut # (Auto) 6.3 Lymph # (Auto) 3.5 [place] # (Auto) 0.9 Eos # (Auto) 0.2 Baso # (Auto) 0.1 Absolute Nucleated RBC 0.00 Nucleated RBC % 0.0 D-Dimer Sodium 137 Potassium 3.1 L Chloride 101 Carbon Dioxide 29 Anion Gap 7.0 BUN 17 Creatinine 0.6 Estimated GFR (MDRD) 105 Glucose 102 Calcium 9.7 Total Bilirubin 0.4 AST 15 ALT 19 Alkaline Phosphatase 80 Troponin I High Sens 14.1 B-Natriuretic Peptide 80 Total Protein 7.2 Albumin 4.2 Globulin 3.0 Albumin/Globulin Ratio 1.4 Lipase 44 02/08/23 20:08 WBC RBC Hgb Hct MCV MCH MCHC RDW Plt Count MPV Neut # (Auto) Lymph # (Auto) [place] # (Auto) Eos # (Auto) Baso # (Auto) Absolute Nucleated RBC Nucleated RBC % D-Dimer 215.5 Sodium Potassium Chloride Carbon Dioxide Anion Gap BUN Creatinine Estimated GFR (MDRD) Glucose Calcium Total Bilirubin AST ALT Alkaline Phosphatase Troponin I High Sens B-Natriuretic Peptide Total Protein Albumin Globulin Albumin/Globulin Ratio Lipase PD Medical Decision Making - ED course Complexity details: reviewed old records, reviewed results, considered differential, d/w patient ED course: Patient 52-year-old female with past medical significant for hypertension presenting to the emergency department with chest pain. Afebrile, hemodynamic stable on arrival to the emergency department. Notably hypertensive with systolic blood pressure greater than 200 on arrival. Endorse for left-sided chest pain that was reproducible with palpation. EKG is on above was negative for indications of acute cardiac ischemia although there were some stable nonspecific ST abnormalities that were noted on her previous EKG 08/11 of this year. Her high-sensitivity troponin as well as her D-dimer is negative. Chest x-ray was read by radiology as having moderate cardiomegaly with possible edema however she did not have any respiratory distress or signs of fluid overload and her beta natruretic peptide was within normal limits. She is given medication for pain control as well as potassium and magnesium supplementation for a mild hypomagnesemia. Additionally she was given a dose of full-strength aspirin in the emergency department. On reevaluation she was found to be resting comfortably. At this time there does not appear to be a dangerous or life-threatening cause for her symptoms however I strongly encouraged her to follow-up with her primary care doctor both concerning her elevated blood pressure as well as her episode of chest pain and the noted mild cardiomegaly on her chest x-ray. She verbalized understanding of the importance of follow-up with primary care. Additionally I gave clear return precautions prior to discharge. Departure - Departure Disposition: 01 Home, Self Care Clinical Impression: Elevated blood pressure reading, Tobacco dependence Chest pain Qualifiers: Chest pain type: unspecified Qualified Code(s): R07.9 - Chest pain, unspecified Instructions: ED Chest Pain Atypical Unkn Cause Prescriptions: HYDROcod/ACETAM 5325 [[place] 5/325] 1 tab PO Q6H #10 tab Comments: Thank you for allowing us to care for you today at [facility]. Today in the emergency department your evaluated for any possible life- threatening medical emergency. The testing performed in the emergency department today including your EKG, blood work and chest x-ray were all very reassuring. There are many things that can cause chest pain. These include but are not limited to gastric reflux disease, musculoskeletal injury, pleurisy. I have written the medication for you to take at home for pain control. I want you to drink plenty fluids and get plenty of rest. Your blood pressure was elevated here in the emergency department and it is very important that you follow-up with your primary care doctor to get your blood pressure rechecked as they may wish to make further alterations to your current blood pressure medications. I also wanted to talk to your primary care doctor concerning all the findings of your ER visit as soon as possible. If it anytime you develop any new or worsening symptoms please not hesitate to return. Forms: PCP List
[2023-02-08] MEDS ORDERED: ASPIRIN CHEW 81 MG TABLET PO STA (20:06)
[2023-02-08] MEDS ORDERED: MORPHINE 2 MG/ML CARPUJECT IVP STA (20:07)
[2023-02-08] MEDS ORDERED: ONDANSETRON 4 MG/2 ML VIAL IVP STA (20:07)
[2023-02-08 20:10] LABS: ALBUMIN 4.2 g/dL (3.2-5.5); ALBUMIN/GLOBULIN RATIO 1.4 (1.0-2.2); BILIRUBIN,TOTAL 0.4 mg/dL (0.2-1.0); CALCIUM 9.7 mg/dL (8.5-10.3); CREATININE 0.6 mg/dL (0.6-1.3); POTASSIUM 3.1 mmol/L (3.5-4.5); TOTAL PROTEIN 7.2 g/dL (6.4-8.9)
[2023-02-08 20:16] LABS: TROPONIN I HIGH SENSITIVITY 14.1 ng/L (2.3-14.8)
--- NOTE | 2023-02-08 20:27 | XRAY Report ---
PROCEDURE: Chest 1 View X-Ray INDICATIONS: Chest pain TECHNIQUE: One view of the chest was acquired. COMPARISON: Chest radiograph . FINDINGS: Surgical changes and devices: None. Lungs and pleura: Mild prominence of the bilateral central pulmonary vasculature. No focal pulmonary opacity is seen. No pleural effusion or pneumothorax. Mediastinum: Cardiac silhouette is mildly enlarged. Bones and chest wall: No suspicious bony lesions. Overlying soft tissues appear unremarkable. IMPRESSION: Mild cardiomegaly and prominence of the central pulmonary vasculature, which is suspicious for mild e petty. No focal consolidation. Reviewed by: Topher Alexander MD on 02/08/2023 8:26 PM PDT Approved by: Topher Alexander MD on 02/08/2023 8:26 PM PDT Station ID: [id number]
[2023-02-08] MEDS ORDERED: METOPROLOL 5 MG/5 ML VIAL IVP STA (20:43)
[2023-02-08] MEDS ORDERED: HYDROmorphone 1 MG/ML CARPUJECT IVP STA (20:43)
[2023-02-08] MEDS ORDERED: MAGNESIUM OXIDE 400 MG TABLET PO ONE (21:00)
[2023-02-08] MEDS ORDERED: POTASSIUM CHLORIDE 20 MEQ/15 ML UDC PO ONE (21:00)
[2023-02-08 21:29] VITALS: O2SAT 98
[2023-02-08 21:49] VITALS: BP 161/97
[2023-02-09] MEDS ORDERED: MAGNESIUM OXIDE 400 MG TABLET PO SCH (08:00)
[2023-02-09] MEDS ORDERED: POTASSIUM CHLORIDE 20 MEQ/15 ML UDC PO SCH (08:00)
== END 2023-02-08 21:39 | disposition home or self-care (01) ==
LOC: ED 19:28
DX: R07.9 Chest pain, unspecified (principal); I10 Essential (primary) hypertension; F17.200 Nicotine dependence, unspecified, uncomplicated; Z79.82 Long term (current) use of aspirin; Z79.899 Other long term (current) drug therapy
CPT/HCPCS: 36415; 71045; 80053; 83690; 83880; 84484; 85025; 85379; 93005; 96374; 96375; 99284; A9270